=== PATIENT | female | born 1970 | race African-American/Black ===

== ENCOUNTER 2025-08-13 08:30 | Outpatient (AMB) | payer MEDICARE, MEDICAID, SELFPAY ==
--- NOTE | 2025-08-13 08:41 | MHC.OFFVIS ---
Vital Signs 08/13/25 08:46 Height 5 ft 3 in Weight 231 lb 8 oz BMI 41.0 BP 174/77 H Blood Pressure Location Lt brachial Position Sitting Pulse 69 Pulse Source Pulse Oximeter Pulse Oximetry (%) 98 Oxygen Delivery Method Room Air Intake Visit Reasons: Rheumatoid Arthritis Intake Note: Pain today 08/07 [employer] Insulation Supervisor Required: No Accompanied by: Self / Same As Patient Allergies No Known Allergies Allergy (Verified 08/13/25 08:44) HPI Comments Details: The patient is a 54-year-old female presenting with chronic pain management concerns related to rheumatoid arthritis and neuropathic pain. 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 The patient has not received treatment for rheumatoid arthritis for approximately seven to eight years due to adverse reactions, including a Clostridioides difficile infection following injectable treatments. The patient reports severe and painful chronic diabetic neuropathic pain, described as extreme nerve pain girish to an electric shock, burning and tinging in her feet and lower extremities and tingling with aching sensations in her hands, which has been present for many years but intensified recently. She moved from [place] to [place] in September 2024 and experienced a lapse in medication from October to February, which may have exacerbated her symptoms. The patient resumed pregabalin in March, prescribed at 150 mg twice daily, which has helped manage her symptoms. The patient has a history of diabetes mellitus, with a significantly elevated A1c of 14 in February, which improved to 9.3 by April or May after restarting regimen of metformin, glimepiride, and insulin. She also reports chronic retinopathy in both eyes, and lumbar spondylosis, which contributes to her back pain. The patient has scoliosis, diagnosed in 2011, which she attributes to rheumatoid arthritis, and experiences significant pain in her lower back and tailbone when sitting for extended periods. She uses a cane and walker for mobility due to leg pain and has not undergone any back or neck surgery, injections or physical therapy. - Onset and Timing: Chronic pain present for many years, intensified recently. - Quality and Character: Described as electric shock-like, burning, tingling, and cramping. - Primary Location: Widespread, including back and legs. - Areas of Radiation: Radiates to both legs. - Exacerbating Factors: Sitting for extended periods, lack of medication. - Relieving Factors: Pregabalin has provided some relief. - Interference with Activities: Pain interferes with sitting, walking, and overall mobility. - Affect: Pain is described as terrifying and impacts psychological well-being. - Analgesia: Currently using pregabalin 150 mg twice daily, previously used Lyrica, with some relief noted. - Adverse Effects: Constipation from pregabalin, managed with dietary fiber. - Activities of Daily Living: Pain limits ability to sit, walk, and perform daily activities, uses cane and walker for mobility. - Aberrant Drug Related Behaviors: No aberrant behaviors reported. [facility] Medical History (Updated 08/14/25 @ 19:10 by SALAS Burgess) Depression Cataracts, bilateral Cervical spinal stenosis Carpal tunnel syndrome Peripheral neuropathy PCOS (polycystic ovarian syndrome) Retinopathy Lumbar scoliosis Eczema Chronic headaches Chronic fatigue Diabetes mellitus Chronic low back pain Neuropathy Rheumatoid arthritis, unspecified Surgical History (Updated 08/14/25 @ 19:03 by SALAS Burgess) History of partial hysterectomy (~2007) Review of Systems Const Details: - Musculoskeletal: Reports widespread pain, numbness from hips down, and scoliosis-related discomfort. - Neurological: Reports severe neuropathic pain and carpal tunnel syndrome in the right hand. - Gastrointestinal: Denies any gastrointestinal issues, manages constipation with dietary fiber. - Psychiatric: Reports pain as terrifying, impacting psychological well-being. All systems reviewed & are unremarkable except as noted in HPI and below Physical Exam Vital Signs: Last Vital Signs Pulse 69 08/13/25 08:46 BP 174/77 H 08/13/25 08:46 Pulse Ox 98 08/13/25 08:46 Oxygen Delivery Method Room Air 08/13/25 08:46 BMI result Body Mass Index 41.0 General: Appears afebrile. Alert and oriented. Mood and affect appropriate. Follows and participates in conversation appropriately. Respiratory effort is unlabored. No cough. Able to transition from sit to stand unassisted. Ambulates with bilaterally normal heel strike and toe off. General: Yes no CVA tenderness Back/Spine/Pelvis Other: Limited lumbar ROM due to pain. Lumbar extension and axial rotations reproduce [id number] pain, lumbar flexion and bending reproduces [id number] pain. No midline tenderness and cervical, thoracic or lumbar spine. Demonstrates 5/5 strength of quadriceps bilaterally as well as flexion/dorsiflexion of bilateral feet against resistance. 2+ pedal pulses bilaterally. Straight leg rise with dorsiflexion negative bilaterally. +2 patellar and achilles reflexes bilaterally. Facet loading test positive bilaterally. Nica sign, Jaron?s, Gaenslen, Pelvic compression and Stinchfield tests are positive on the right. No groin pain with I/E hip rotations. Valsalva maneuver negative. Assessed fibromyalgia tender points with no significant findings. Mild leg length discrepancy noted. Back: no CVA tenderness Cervical Spine: cervical ROM normal, cervical muscular tenderness and No Cervical spine tenderness Thoracic/Lumbar Spine: thoracic and lumbar spine normal to inspection, No Thoracic/lumbar spine scar(s), Lasegue's sign negative, straight leg raise negative bilaterally, pain with thoraco-lumbar ROM, paraspinal muscle tenderness, thoraco-lumbar ROM limited, No thoracic spinal tenderness and No lumbar spinal tenderness Sacroiliac joints: bilaterally tender to palpation Extrem Other: There is a decreased sensation over the soles of both feet and toes. Reports numbness, burning, tingling and bilateral foot pain, worse at night time. No breaks in the skin. No soft tissue swelling or warmth. +2 pedal pulses bilaterally.? General: Yes capillary refill normal, Yes no clubbing, cyanosis or edema and Yes no calf tenderness Assessment & Plan Assessment & Plan (1) Chronic low back pain: Code(s): M54.50 - Low back pain, unspecified; G89.29 - Other chronic pain Category: Medical (2) Lumbosacral spondylosis: Code(s): M47.817 - Spondylosis without myelopathy or radiculopathy, lumbosacral region Category: Medical (3) Sacroiliac joint pain: Code(s): M53.3 - Sacrococcygeal disorders, not elsewhere classified Category: Medical (4) Coccydynia: Code(s): M53.3 - Sacrococcygeal disorders, not elsewhere classified Category: Medical (5) Peripheral neuropathy: Code(s): G62.9 - Polyneuropathy, unspecified Category: Medical (6) Lumbar scoliosis: Code(s): M41.9 - Scoliosis, unspecified Category: Medical Plan The plan includes managing the patient's chronic pain through a combination of pharmacological and non-pharmacological interventions. Pregabalin will continue to be used for neuropathic pain management. Physical therapy is recommended to address chronic low back pain with scoliosis and improve mobility, with a focus on posture correction and strengthening exercises. The patient will be evaluated for potential interventions such as spinal cord stimulation trial once A1C levels improve and topical 8% capsaicin application for pain management, pending insurance approval. Educational materials and brochures will be provided to the patient for further understanding of these options. All questions and concerns have been answered and patient agreed with the treatment plan. Follow up for xray results and sooner as needed. Patient was informed and verbally consented to the use of an ambient scribe for clinic note documentation during this visit. Orders: Orders XR lumbar spine 4V min 08/13/25 G89.29 - Other chronic pain, M47.817 - Spondylosis without myelopathy or radiculopathy, lumbosacral region, M54.50 - Low back pain, unspecified XR sacrum coccyx min 2V 08/13/25 M53.3 - Sacrococcygeal disorders, not elsewhere classified PT Evaluation and Treatment 08/13/25 G89.29 - Other chronic pain, M47.817 - Spondylosis without myelopathy or radiculopathy, lumbosacral region, M53.3 - Sacrococcygeal disorders, not elsewhere classified, M54.50 - Low back pain, unspecified Patient Instructions: - Continue taking pregabalin as prescribed and monitor for any side effects. - Follow your diabetes medication regimen and monitor blood glucose levels regularly. - Attend physical therapy sessions to improve mobility and manage scoliosis. - Review educational materials on spinal cord stimulation trial vs implant and topical 8% capsaicin application. - Sign up for the patient portal to access medical records and communicate with healthcare providers. - Schedule follow-up appointments to review progress and adjust treatment plans. Coding Level of Care Code New Pt Level 4 (65792) Diagnoses Chronic low back pain M54.50; G89.29 Lumbosacral spondylosis M47.817 Sacroiliac joint pain M53.3 Coccydynia M53.3 Peripheral neuropathy G62.9 Lumbar scoliosis M41.9
[2025-08-13 08:46] VITALS: BP 174/77; PULSE 69; O2SAT 98; BMI 41.0
--- OUTSIDE RECORDS SUMMARY | 2025-08-13 08:56 | XMS_ITS | Clinical Summary ---
Author Organization [facility] Address [address] [place] [address] Care Team Providers Care Technical Photographer Name Role Phone Jazmin Schmidt NP Primary Care Provider [phone] Source Comments PLEASE NOTE, if this patient is a minor, it may be UNLAWFUL to discuss sensitive information that is contained in these records (such as FAMILY PLANNING, MENTAL HEALTH or SUBSTANCE ABUSE) with the minor patient's parent or other person without the patient's specific authorization.[facility] Allergies No known active allergies Medications clotrimazole ([id number]) 2 % vaginal creamIndications: Vaginal itching Place 1 Applicatorful vaginally nightly at bedtime 21 g 025 Active blood-glucose meter monitoring kitIndications:Ty pe 2 diabetes mellitus with hyperglycemia, without long-term current use of insulin Use to test blood glucose twice daily. (Freestyle Lite). 1 Each 025 Active alcohol swabsIndications: Type 2 diabetes mellitus with hyperglycemia, without long-term current use of insulin Use to test blood glucose twice daily.. 100 Each 025 Active blood sugar diagnostic (BLOOD GLUCOSE TEST) stripsIndications :Type 2 diabetes mellitus with hyperglycemia, without long-term current use of insulin Use to test blood glucose twice daily. (Freestyle Lite). 100 Each 025 Active lancets 28 gaugeIndications: Type 2 diabetes mellitus with hyperglycemia, without long-term current use of insulin Use to test blood glucose twice daily. (Freestyle Lite). 100 Each 025 Active pen needle, diabetic 31 gauge x 03/13 ndleIndications:T ype 2 diabetes mellitus with hyperglycemia, without long-term current use of insulin Use to inject insulin once daily. 100 Each 1 025 Active metFORMIN (GLUCOPHAGE) 1,000 mg tabletIndications :Type 2 diabetes mellitus with hyperglycemia, with long-term current use of insulin Take 1 Tablet by mouth 2 (two) times daily with a meal. 180 Tablet 1 Active insulin glargine 100 unit/mL (3 mL) penIndications:Ty pe 2 diabetes mellitus with hyperglycemia, with long-term current use of insulin Inject 18 Units into the skin nightly at bedtime. 15 mL Active sertraline (ZOLOFT) 50 mg tablet TAKE ONE TABLET BY MOUTH ONCE DAILY 30 Tablet 3 Active pregabalin (LYRICA) 150 mg capsuleIndication s:Polyneuropathy associated with underlying disease Take 1 Capsule by mouth 2 (two) times daily. Max Daily Amount: 300 mg 60 Capsule Active rosuvastatin (CRESTOR) 10 mg tabletIndications :Hyperlipidemia, unspecified hyperlipidemia type Take 1 Tablet by mouth nightly at bedtime. 90 Tablet Active empagliflozin-randa agliptin 25-5 mg tabIndications:Ty pe 2 diabetes mellitus with hyperglycemia, without long-term current use of insulin Take 25 mg by mouth once daily. 30 Tablet 2 Active sertraline (ZOLOFT) 50 mg tablet Take 1 Tablet by mouth once daily. 30 Tablet 3 025 2024 Discontinued empagliflozin-randa agliptin 25-5 mg tabIndications:Ty pe 2 diabetes mellitus with hyperglycemia, without long-term current use of insulin Take 25 mg by mouth once daily. 30 Tablet 2 025 2024 Discontinued(R eorder (E-Cancel Not Sent)) rosuvastatin (CRESTOR) 10 mg tabletIndications :Hyperlipidemia, unspecified hyperlipidemia type Take 1 Tablet by mouth nightly at bedtime. 90 Tablet 025 2024 Discontinued(R eorder (E-Cancel Not Sent)) insulin glargine 100 unit/mL (3 mL) penIndications:Ty pe 2 diabetes mellitus with hyperglycemia, without long-term current use of insulin Inject 15 Units into the skin nightly at bedtime. 15 mL 025 2024 Discontinued(R eorder (E-Cancel Not Sent)) pregabalin (LYRICA) 100 mg capsule TAKE ONE CAPSULE BY MOUTH TWICE DAILY (max TWO CAPSULES DAILY) 60 Capsule 025 2024 Discontinued metFORMIN (GLUCOPHAGE) 500 mg tabletIndications :Type 2 diabetes mellitus with hyperglycemia, without long-term current use of insulin TAKE ONE TABLET BY MOUTH THREE TIMES DAILY 90 Tablet 2 025 2024 Discontinued(Q uantity/Dosage and/or Sig change) pregabalin (LYRICA) 100 mg capsule TAKE ONE CAPSULE BY MOUTH TWICE DAILY (max TWO CAPSULES DAILY) 60 Capsule 025 2024 Discontinued(C ancelled) Active Problems Problem Noted Date Diagnosed Date History of abnormal mammogram 07/30/2025 Overview (07/30/2025): 07/21/25 FINDINGS: No suspicious microcalcifications or areas of architectural distortion are seen in either breast to suggest malignancy. In the lower outer quadrant of the right breast, there is a circumscribed, oval, 4.5 x 5 mm nodular asymmetry (CC image 6/59), also well seen on the 2-D right CC view 8.5 cm from the nipple. This is not clearly identified on the MLO views. Recommend further assessment with tomosynthesis spot CC and full field mediolateral views. Ultrasound should be available. IMPRESSION: Additional right breast imaging recommended for a 5 mm nodular asymmetry, as above. RECOMMENDATION: Diagnostic 3D tomosynthesis of the right breast with scheduled ultrasound BI-RADS: 0 (Incomplete - Need Additional Imaging Evaluation. History of mammogram 07/22/2025 Overview (07/30/2025): 07/21/25 FINDINGS: No suspicious microcalcifications or areas of architectural distortion are seen in either breast to suggest malignancy. In the lower outer quadrant of the right breast, there is a circumscribed, oval, 4.5 x 5 mm nodular asymmetry (CC image 6/59), also well seen on the 2-D right CC view 8.5 cm from the nipple. This is not clearly identified on the MLO views. Recommend further assessment with tomosynthesis spot CC and full field mediolateral views. Ultrasound should be available. IMPRESSION: Additional right breast imaging recommended for a 5 mm nodular asymmetry, as above. RECOMMENDATION: Diagnostic 3D tomosynthesis of the right breast with scheduled ultrasound BI-RADS: 0 (Incomplete - Need Additional Imaging Evaluation. History of electromyogram 07/22/2025 Overview (07/22/2025): 07/09/25 EMG IMPRESSION: Abnormal study. There is evidence of a xdrszfsz-rr-yansbj generalized sensorimotor axonal and demyelinating neuropathy. There is evidence of a moderate median neuropathy at the right wrist. There is evidence of an ulnar neuropathy bilaterally at the elbow, which is more severe on the right side. There is no evidence of any active radiculopathy, but chronic radiculopathy could not be excluded at this time. No evidence of myopathy. Polyneuropathy associated with underlying diseas e 07/13/2025 Recurrent major depressive disorder 04/10/2025 Rheumatoid arthritis 04/10/2025 Acquired scoliosis 04/10/2025 History of suicide attempt 04/10/2025 Overview (04/13/2025): March 2025 completed 7 day admission at [place] February 2025: suicidal attempt after ingesting wintergreen oil requiring admission to the medicine service comanaged by poison control and renal team requiring hemodialysis and sodium bicarbonate at [facility] PCOS (polycystic ovarian syndrome) 04/10/2025 Type 2 diabetes mellitus wit h hyperglycemia, without long-term current use of insulin 04/03/2025 Class 3 severe obesity due t o excess calories without serious comorbidity with body mass index (BMI) of 40.0 to 44.9 in adult 04/03/2025 Encounters Date Type Department Care Team Description 08/04/2025 9:40 AM EDT Office Visit [address] [phone] Jazmin Schmidt NP 07/22/2025 Results Follow-Up [address] [phone] Aleah Pope RN 07/16/2025 9:00 AM EDT Telemedicine Visit [address] [address] David Rios, Virgen 07/13/2025 8:40 AM EDT Telemedicine Visit [address] [address] Patria Montez PA-C 06/25/2025 1:00 PM EDT Office Visit [address] [address] Cindy Hartman PA-C 06/18/2025 Results Follow-Up [address] [address] David Rios, PharmD 06/10/2025 Interim Notes [address] [address] Jazmin Schmidt NP 06/08/2025 2:40 PM EDT Office Visit [address] [address] Jazmin Schmidt NP 06/05/2025 9:00 AM EDT Office Visit [address] [phone] David Rios, PharmD from Last 3 Months Family History Medical History Relation Name Comments Diabetes Father Diabetes Maternal Grandfather Diabetes Maternal Grandmother Breast cancer Mother Diabetes Mother Polycystic ovary syndrome Sister 2 Psoriasis Sister 2 No Known Problems Sister 3 No Known Problems Sister 4 No Known Problems Sister 5 Relation Name Status Comments Father Alive Maternal Grandfather Maternal Grandmother Mother Alive Sister 1 Sister 2 Alive Sister 3 Alive Sister 4 Alive Sister 5 Alive Social History Tobacco Use Types Packs/Day Years Used Date Smoking Tobacco: Never Passive Smoke Exposure: Never Smokeless Tobacco: Never Tobacco Cessation:Counseling Given: Not Answered Alcohol Use Standard Drinks/Week Comments Never 0 (1 standard drink = 0.6 oz pur e alcohol) Comments No Sex and Gender Information Value Date Recorded Sex Assigned at Female 03/12/2025 5:53 AM PDT Legal Sex Female 7:02 AM PST Gender Identity Female 03/12/2025 5:53 AM PDT Sexual Orientation Straight 03/12/2025 5: 53 AM PDT Last Filed Vital Signs Vital Sign Reading Time Taken Comments Blood Pressure 130/60 08/04/2025 10:04 AM EDT Pulse 71 08/04/2025 10:04 AM EDT Temperature 37.1 C (98.7 F) 08/04/2025 10:04 AM EDT Respiratory Rate 16 08/04/2025 10:04 AM EDT Oxygen Saturation 97% 08/04/2025 10:04 AM EDT Inhaled Oxygen Concentration - - Weight 104.3 kg (230 lb) 08/04/2025 10:04 AM EDT Height 160 cm (5' 3 ) 08/04/2025 10:04 AM EDT Body Mass Index 40.74 08/04/2025 10:04 AM EDT Plan of Treatment Upcoming Encounters Date Type Department Care Team (Late st Contact Info) Description 08/20/2025 9:00 AM EDT Office Visit [facility] [address] [place] [phone] David Rios, PharmD [address] [place] [address] Health Maintenance Due Date Last Done Comments Dental Examination 1971 Diabetes Foot Exam 1971 Hepatitis C Screening 1971 Retinopathy Screening 1984 Medicare Annual Wellness Visit 1989 CT Colonography 2016 Colonoscopy 2016 Colorectal Cancer Screening 2016 FIT/gFOBT 2016 Fecal DNA 2016 Flexible Sigmoidoscopy 2016 [id number] ( season) 2025 Hemoglobin A1c 09/12/2025 06/12/2025, 03/12/2025 Imm-DTaP/Tdap/Td (1 - Tdap) 09/25/2025 11/04/2003 Postponed from 11/05/2003 (Patient postponement) Imm-Hepatitis B (1 of 3 - 19 + 3-dose series) 09/25/2025 Postponed from 10/20 (Patient postponement) Imm-Influenza (#1) 2025 Postponed from 06/29/2025 (Patient postponement) Imm-Pneumococcal 50+ (1 of 2 - PCV) 09/25/2025 Postponed from 10/20 (Patient postponement) Imm-Zoster, Recombinant (1 o f 2) 09/25/2025 Postponed from 10/20 (Patient postponement) Depression Monitoring 10/12/2025 07/13/2025 , 04/10/2025 Lipid Screening 03/12/2026 03/12/2025 Serum Creatinine 04/03/2026 04/03/2025 Anxiety Screening 04/10/2026 04/10/2025 Urine Albumin Creatinine Ratio Screening 04/10/2026 04/10/2025 Tobacco Screening 07/13/2026 07/13/2025 Hypertension Screening (#1) 08/04/2026 Breast Cancer Screening (Mammogram) 07/21/2027 07/21/2025 HIV Screening Completed 03/12/2025 Alcohol and Drug Screen Completed 07/13/20, 04/10/2025 Procedures Procedure Name Priority Date/Time Associated Diagnosis Comments OTHER ORDERS SCANNED DOCUMENT 08/07/2025 3:00 AM EDT REFERRAL SCANNED DOCUMENT 08/06/2025 3:00 AM EDT OTHER ORDERS SCANNED DOCUMENT 08/06/2025 3:00 AM EDT DRUG MONITORING TEMPLATE Routine 08/04/2025 12:03 PM EDT DRUG MONITORING, PANEL 8 WITH CONFIRMATION, URINE Routine 08/04/2025 12:03 PM EDT Medication management REFERRAL FOR MAMMOGRAM Routine 07/21/2025 3:00 AM EDT Encounter for screening mammogram for malignant neoplasm of breast PROCEDURE SCANNED DOCUMENT 07/09/2025 3:00 AM EDT HGBA1C W/MPG Routine 06/12/2025 9:06 AM EDT Type 2 diabetes mellitus with hyperglycemia, without long-term current use of insulin ([facility]) REFERRAL TO PAIN MANAGEMENT Routine 06/08/2025 3:00 AM EDT Rheumatoid arthritis, involving unspecified site, unspecified whether rheumatoid factor present ([facility]) Neuropathy GLUCOSE, BLOOD BY GLUCOSE MONITORING DEVICE (CLIA WAIVED)POCT Routine 06/05/2025 9:18 AM EDT Type 2 diabetes mellitus with hyperglycemia, without long-term current use of insulin ([facility]) REFERRAL SCANNED DOCUMENT 05/18/2025 3:00 AM EDT MICROALBUMIN/CREATINI NE RATIO, URINE, RANDOM Routine 04/10/2025 10:18 AM EDT Type 2 diabetes mellitus with hyperglycemia, without long-term current use of insulin ([facility]) COMPREHENSIVE METABOLIC PANEL Routine 04/03/2025 9:20 AM EDT Type 2 diabetes mellitus with hyperglycemia, without long-term current use of insulin ([facility]) HIV 1/2 AG & AB W/RFLX (4TH GEN) Routine 03/12/2025 9:28 AM EDT Type 2 diabetes mellitus with hyperglycemia, without long-term current use of insulin ([facility]) Hyperlipidemia, unspecified hyperlipidemia type LIPID PANEL Routine 03/12/2025 9:28 AM EDT Type 2 diabetes mellitus with hyperglycemia, without long-term current use of insulin ([facility]) Hyperlipidemia, unspecified hyperlipidemia type from Last 3 Months or Most Recently Relevant to Health Maintenance Results * OTHER ORDERS SCANNED DOCUMENT (08/07/2025 3:00 AM EDT) Only the most recent of2 resultswithin the time period is included. 08/07/2025 3:00 AM EDT Jose Miguel Lees SALES REPRESENTATIVE SUPERVISOR SCAN OTHER ORDERS Final R esult * REFERRAL SCANNED DOCUMENT (08/06/2025 3:00 AM EDT) Only the most recent of2 resultswithin the time period is included. 08/06/2025 3:00 AM EDT Jazmin Schmidt LUG BREAKER AND WIRE PULLER SCAN REFERRAL Final Result * DRUG MONITORING TEMPLATE Routine (08/04/2025 12:03 PM EDT) Notes and Comments SEE NOTE 08/06/2025 7:30 AM EDT [facility] 08/04/2025 12:0 3 PM EDT 08/04/2025 12:03 PM EDT Narrative [facility] - 08/06/2025 7:30 AM EDT This drug testing is for medical treatment only. Analysis was performed as non-forensic testing and these results should be used only by healthcare providers to render diagnosis or treatment, or to monitor progress of medical conditions. . LDT Notes: Confirmation tests were developed and their analytical performance characteristics have been determined by [employer]. It has not been cleared or approved by the FDA. This assay has been validated pursuant to the CLIA regulations and is used for clinical purposes. . . Healthcare Providers needing Interpretation assistance, please contact us at [phone] ( ) M-F, 8am to 10pm EST Jazmin Schmidt LUG BREAKER AND WIRE PULLER LAB URINE AMBULATORY Final Resu lt [facility] [address] [address], [facility] [address] [address] * DRUG MONITORING, PANEL 8 WITH CONFIRMATION, URINE Urine Routine (08/04/2025 12:03 PM EDT) ALCOHOL METABOLITES NEGATIVE <500 ng/mL 08/06/2025 6:49 AM EDT [facility] AMPHETAMINES NEGATIVE <500 ng/mL 08/06/2025 7:30 AM EDT [facility] BENZODIAZEPINES NEGATIVE <100 ng/mL 08/06/2025 7:30 AM EDT [facility] BUPRENORPHINE NEGATIVE <5 ng/mL 08/06/2025 7:30 AM EDT [facility] COCAINE METABOLITE NEGATIVE <150 ng/mL 08/06/2025 7:30 AM EDT [facility] 6 ACETYLMORPHINE NEGATIVE <10 ng/mL 08/06/2025 7:30 AM EDT [facility] MARIJUANA METABOLITE NEGATIVE <20 ng/mL 08/06/2025 7:30 AM EDT [facility] MDMA NEGATIVE <500 ng/mL 08/06/2025 7:30 AM EDT [facility] OPIATES NEGATIVE <100 ng/mL 08/06/2025 7:30 AM EDT [facility] OXYCODONE NEGATIVE <100 ng/mL 08/06/2025 7:30 AM EDT [facility] CREATININE 55.2 > or = 20.0 mg/dL 08/06/2025 7:30 AM EDT [facility] PH 6.1 4.5 - 9.0 08/06/2025 7:30 AM EDT [facility] OXIDANT NEGATIVE <200 mcg/mL 08/06/2025 7:30 AM EDT [facility] Urine Urine specimen / Unknown 08/04/2025 12:03 PM EDT 08/04/2025 12:03 PM EDT us Jazmin Schmidt NP LAB URINE AMBULATORY Final Resu lt [facility] [address] [id number], [email or web address] [address] [address] * REFERRAL FOR MAMMOGRAM (07/21/2025 3:00 AM EDT) 07/21/2025 3:00 AM EDT us Jazmin Schmidt NP IMG RFL MAMMO Final Result * PROCEDURE SCANNED DOCUMENT (07/09/2025 3:00 AM EDT) 07/09/2025 3:00 AM EDT us Jazmin Schmidt NP SCAN PROCEDURES Final Result * (ABNORMAL) HGBA1C W/MPG Routine (06/12/2025 9:06 AM EDT) HEMOGLOBIN A1C 9.3(H) <5.7 % 06/13/2025 6:17 AM EDT [facility] MEAN PLASMA GLUCOSE 254 mg/dL (calc) 06/13/2025 6:17 AM EDT [facility] Blood Blood / Unknown 06/12/2025 9 :06 AM EDT 06/13/2025 4:05 AM EDT Narrative [facility] - 06/13/2025 6:21 AM EDT FASTING:YES For someone without known diabetes, a hemoglobin A1c value of 6.5% or greater indicates that they may have diabetes and this should be confirmed with a follow-up test. . For someone with known diabetes, a value <7% indicates that their diabetes is well controlled and a value greater than or equal to 7% indicates suboptimal control. A1c targets should be individualized based on duration of diabetes, age, comorbid conditions, and other considerations. . Currently, no consensus exists regarding use of hemoglobin A1c for diagnosis of diabetes for children. . David Britt PharmD LAB - BLOOD D RAW Final Result Performing Organization Address [facility] Co de Phone Number [facility] [address] [address], [facility] [address] [address] * REFERRAL TO PAIN MANAGEMENT (06/08/2025 3:00 AM EDT) 06/08/2025 3:00 AM EDT Jazmin Schmidt LUG BREAKER [employer] WIRE P[employer]ER REFERRAL Final Result * (ABNORMAL) GLUCOSE, BLOOD BY GLUCOSE MONITORING DEVICE (CLIA WAIVED)POCT Routine (06/05/2025 9:18 AM EDT) GLUCOSE 288(A) 70 - 100 mg/dL [facility] PO[facility] Capillary Blood Blood / Unknown 9:18 AM EDT David Britt PharmD LAB - BLOOD D RAW Final Result Performing Organization Address [facility] Co de Phone Number [facility] PO[facility] * MICROALBUMIN/CREATININE RATIO, URINE, RANDOM Urine Routine (04/10/2025 10:18 AM EDT) CREATININE, RANDOM URINE 32 20 - 275 mg/dL [facility] MICROALBUMIN <0.2 mg/dL [facility] Comment: Reference Range Not established MICROALBUMIN/CREA TININE RATIO, RANDOM URINE NOTE <30 [employer] Comment: NOTE: The urine albumin value is less than 0.2 mg/dL therefore we are unable to calculate excretion and/or creatinine ratio. The ADA defines abnormalities in albumin excretion as follows: Albuminuria Category Result (mg/g creatinine) Normal to Mildly increased <30 Moderately increased 30-299 Severely increased > OR = 300 The ADA recommends that at least two of three specimens collected within a 3-6 month period be abnormal before considering a patient to be within a diagnostic category. Urine Urine specimen / Unknown 04/10/2025 10:18 AM EDT 04/10/2025 10:19 AM EDT Narrative [facility] - 04/13/2025 12:16 PM EDT SPLIT 04/03/2025 FROM [id number] David Britt PharmD LAB URINE AMB ULATORY Final Result [facility] [address] [place] [phone], [facility] [address] [place] [id number] * (ABNORMAL) COMPREHENSIVE METABOLIC PANEL Routine (04/03/2025 9:20 AM EDT) GLUCOSE 164(H) 65 - 99 mg/dL [facility] Comment: Fasting reference interval For someone without known diabetes, a glucose value >125 mg/dL indicates that they may have diabetes and this should be confirmed with a follow-up test. UREA NITROGEN (BUN) 12 7 - 25 mg/dL [facility] CREATININE (blood) 0.78 0.50 - 1.03 mg/dL [facility] EGFR 91 > OR = 60 mL/min/1. 73m2 [facility] BUN/CREATININE RATIO SEE NOTE: [facility] Comment: Not Reported: BUN and Creatinine are within reference range. SODIUM 141 135 - 146 mmol/L [facility] POTASSIUM 4.4 3.5 - 5.3 mmol/L [facility] CHLORIDE 104 98 - 110 mmol/L [facility] CARBON DIOXIDE 30 20 - 32 mmol/L [facility] CALCIUM 8.6 8.6 - 10.4 mg/dL [facility] PROTEIN, TOTAL 6.3 6.1 - 8.1 g/dL [facility] ALBUMIN 3.8 3.6 - 5.1 g/dL [facility] GLOBULIN 2.5 1.9 - 3.7 g/dL (calc) [facility] ALBUMIN/GLOBULI N RATIO 1.5 1.0 - 2.5 (calc) [facility] BILIRUBIN, TOTAL 0.3 0.2 - 1.2 mg/dL [facility] ALKALINE PHOSPHATASE 80 37 - 153 U/L [facility] AST 14 10 - 35 U/L [facility] ALT 12 6 - 29 U/L [facility] Blood Blood / Unknown 04/03/2025 9 :20 AM EDT 04/03/2025 9:21 AM EDT Narrative [facility] - 04/04/2025 7:06 AM EDT PATIENT UNABLE TO VOID; ADVISED TO RETURN FOR COLLECTION. us David Britt PharmD LAB - BLOOD D RAW Edited Result - Final [facility] [address] [address], [facility] [address] [address] * HIV 1/2 AG & AB W/RFLX (4TH GEN) (03/12/2025 9:28 AM EDT) HIV AG/AB, 4TH GEN NON-REAC TIVE NON-REAC TIVE [facility] Comment: HIV-1 antigen and HIV-1/HIV-2 antibodies were not detected. There is no laboratory evidence of HIV infection. PLEASE NOTE: This information has been disclosed to you from records whose confidentiality may be protected by state law. If your state requires such protection, then the state law prohibits you from making any further disclosure of the information without the specific written consent of the person to whom it pertains, or as otherwise permitted by law. A general authorization for the release of medical or other information is NOT sufficient for this purpose. For additional information please refer to http://[employer].Online Prasad/faq/FQJ702 (This link is being provided for informational/ educational purposes only.) The performance of this assay has not been clinically validated in patients less than 2 years old. Blood Blood / Unknown 03/12/2025 9 :28 AM EDT 03/12/2025 9:28 AM EDT Narrative [facility] - 03/13/2025 10:00 AM EDT FASTING:NO Lux Saldivar PA-C LAB - BLOOD DRAW Final Result [facility] [address] [place] [phone], [facility] [address] [address] * (ABNORMAL) LIPID PANEL (03/12/2025 9:28 AM EDT) CHOLESTEROL, TOTAL 292(H) <200 mg/dL [facility] HDL CHOLESTEROL 82 > OR = 50 mg/dL [facility] TRIGLYCERIDES 153(H) <150 mg/dL [facility] LDL-CHOLESTEROL 180(H) 99 mg/dL (calc) [facility] Comment: Reference range: <100 Desirable range <100 mg/dL for primary prevention; <70 mg/dL for patients with CHD or diabetic patients with > or = 2 CHD risk factors. LDL-C is now calculated using the Ildefonso-Manpreet calculation, which is a validated novel method providing better accuracy than the Friedewald equation in the estimation of LDL-C. Ildefonso HOLLIS et al. AUGUSTUS. 2013;310(19): 2855-1022 (http://education.Women.com/faq/RWQ263) CHOL/HDLC RATIO 3.6 <5.0 (calc) [facility] NON-HDL CHOLESTEROL 210(H) <130 mg/dL (calc) [facility] Comment: For patients with diabetes plus 1 major ASCVD risk factor, treating to a non-HDL-C goal of <100 mg/dL (LDL-C of <70 mg/dL) is considered a therapeutic option. Blood Blood / Unknown 03/12/2025 9 :28 AM EDT 03/12/2025 9:28 AM EDT Narrative [facility] - 03/13/2025 10:00 AM EDT FASTING:NO us Lux Saldivar PA-C LAB - BLOOD DRAW Final Result [facility] [address] [address], [facility] [address] [place] [address] from Last 3 Months or Most Recently Relevant to Health Maintenance Insurance [place] Care Teams Technical Photographer Relationship Specialty Start Date End Date Jazmin Schmidt NP [address] [place] [address] PCP - General Family Medicine, [employer] 03/19/25
--- OUTSIDE RECORDS SUMMARY | 2025-08-13 08:56 | XMS_ITS | Clinical Summary ---
Author Organization [facility] Address [address] [place] [address] Phone Care Team Providers Care Rectifying Attendant Name Role Phone Jazmin Schmidt NP Primary Care Provider [phone] Social History Tobacco Use Types Packs/Day Years Used Date Smoking Tobacco: Never Assessed Comments Unknown Sex and Gender Information Value Date Recorded Sex Assigned at Female 04/14/2025 11:47 AM EDT Legal Sex Female 3:28 PM EDT Gender Identity Female 04/14/2025 11:47 AM EDT Sexual Orientation Straight 04/14/2025 11 :47 AM EDT Plan of Treatment Upcoming Encounters Date Type Department Care Team (Late st Contact Info) Description 10/01/2025 1:15 PM EST Evaluation [facility] [address] [facility] [address] [place] [address] Anne Marie Johnson PT Health Maintenance Due Date Last Done Comments Breast Cancer Screening 1971 Colorectal Cancer Screening: Colonoscopy 1971 DTaP,Tdap,and Td Vaccines (1 - Tdap) 1990 Hepatitis B Vaccines (1 of 3 - 19+ 3-dose series) 1990 Cervical Cancer Screening: P ap Smear 1992 Pneumococcal Vaccine: 50+ Ye ars (1 of 1 - PCV) 2021 Zoster Vaccines (1 of 2) 2021 Depression Screening 10/29/2024 Cholesterol Screening (Lipid Panel) 04/14/2025 HIV Screening 04/14/2025 Hepatitis C Screening 04/14/2025 Medicare Annual Wellness Visit 04/14/2025 Social Influencers of Health Screening 04/14/2025 COVID-19 Vaccine (2023-2 5 season) 2025 Influenza Vaccine (#1) 2025 RSV Immunization Adult Patie nts (1 - 1-dose 75+ series) 2046 HIB Vaccines Aged Out No longer eligi ble based on patient's age to complete this topic HPV Vaccines Aged Out No longer eligi ble based on patient's age to complete this topic Hepatitis A Vaccines Aged Out No long er eligible based on patient's age to complete this topic IPV Vaccines Aged Out No longer eligi ble based on patient's age to complete this topic MMR Vaccines Aged Out No longer eligi ble based on patient's age to complete this topic Meningococcal ACWY Vaccine Aged Out N o longer eligible based on patient's age to complete this topic Meningococcal B Vaccine Aged Out No l onger eligible based on patient's age to complete this topic RSV Immunization Patients Un alessandra 20 months Aged Out No longer eligible b ased on patient's age to complete this topic Varicella Vaccines Aged Out No longer eligible based on patient's age to complete this topic Insurance MEDICARE MEDICAID - [place] Care Teams Rectifying Attendant Relationship Specialty Start Date End Date Jazmin Schmidt NP [address] [place] [address] PCP - General Family Medicine 08/06/25
== END 2025-08-13 09:52 | disposition home or self-care (01) ==
LOC: HO.PMC 08:31
PROVIDERS: Visit Provider Nurse Practitioner Family
DX: M54.50 Low back pain, unspecified (principal); G89.29 Other chronic pain; M47.817 Spondylosis without myelopathy or radiculopathy, lumbosacral region; M53.3 Sacrococcygeal disorders, not elsewhere classified; G62.9 Polyneuropathy, unspecified; M41.9 Scoliosis, unspecified
CPT/HCPCS: 99204

== ENCOUNTER → 2025-08-13 08:30 | Outpatient (BNVA) | payer MEDICARE, MEDICAID, SELFPAY | PROVIDERS: Visit Provider Nurse Practitioner Family | DX: E11.42 Type 2 diabetes mellitus with diabetic polyneuropathy (principal); M54.50 Low back pain, unspecified; G89.29 Other chronic pain; M47.817 Spondylosis without myelopathy or radiculopathy, lumbosacral region; M53.3 Sacrococcygeal disorders, not elsewhere classified; G62.9 Polyneuropathy, unspecified; Z79.4 Long term (current) use of insulin | CPT/HCPCS: 99202 ==